=== PATIENT | female | born 1970 | race Caucasian/White ===

== ENCOUNTER 2017-04-29 11:30 | Emergency (ER) | payer OTHER, MEDICAID ==
[~2017-04-29] VITALS: Ht 152.4 cm; Wt 81.0 kg
[2017-04-29 11:38] VITALS: Ht 152.4 cm; Wt 81.0 kg
[2017-04-29] MEDS ORDERED: KETOROLAC 30 MG INJ IM STA (12:04)
[2017-04-29 12:26] LABS: ADD UMIC NO; UR ASCORBIC ACID NEGATIVE (NEGATIVE); UR BILIRUBIN (Dip) NEGATIVE (NEGATIVE); UR BLOOD (Dip) NEGATIVE (NEGATIVE); UR CLARITY CLEAR (CLEAR); UR COLOR STRAW (YELLOW); UR GLUCOSE (Dip) NEGATIVE (NEGATIVE); UR KETONES (Dip) NEGATIVE (NEGATIVE); UR LEUKOCYTE ESTERASE (Dip) NEGATIVE Leu/ul (NEGATIVE); UR NITRITE (Dip) NEGATIVE (NEGATIVE); UR SPECIFIC GRAVITY (Dip) 1.006 (1.003-1.030); UR TOTAL PROTEIN (Dip) NEGATIVE (NEGATIVE); UR UROBILINOGEN (Dip) NEGATIVE (NEGATIVE)
[2017-04-29] MEDS ORDERED: DIAZEPAM 5 MG TAB PO ONE (12:30)
--- NOTE | 2017-04-29 13:26 | RADRPT ---
PROCEDURE: XR left Hip. CLINICAL INDICATION: Left hip pain TECHNIQUE: AP and frog lateral views of the left hip were performed. COMPARISON: None. FINDINGS: There is no acute osseous or articular abnormality. No evidence for fracture. Bone mineral density is preserved. The left hip joint is maintained. 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 The soft tissues are intact without evidence of calcifications. IMPRESSION: 1. No acute osseous abnormality. 2. Preserved left hip joint space. RPTAT: AA .Jose Rosas MD, MD Date Time Electronically viewed and signed by .Jose Rosas MD, MD on 04/29/2017 13:26 .d/
--- NOTE | 2017-04-29 13:39 | RADRPT ---
PROCEDURE: XR L-Spine. CLINICAL INDICATION: Low back pain. TECHNIQUE: AP, lateral, and cone down views of the lumbar spine were obtained. COMPARISON: None FINDINGS: The lumbar lordosis is maintained. Mild disk height loss at L5-S1 is seen. The vertebral body height s are normal. No acute fracture or subluxation is seen. No paravertebral soft tissue abnormality i s seen. IMPRESSION: Mild discogenic disease at L5-S1. RPTAT: HPNM Physician Prashant Date Time Electronically viewed and signed by Physician Prashant on 04/29/2017 13:38 /
[2017-04-29] MEDS ORDERED: NAPR-688 PO (13:53)
[2017-04-29] MEDS ORDERED: CYCL-319 PO (13:53)
[2017-04-29 14:00] VITALS: BP 131/80; PULSE 73; RESP 18; TEMP 98.4
--- NOTE | 2017-04-29 15:24 | ERD ---
ER Documentation Chief Complaint Date/Time DATE: 04/29/17 TIME: 15:20 Chief Complaint left hip pain radiating to the back HPI This is a 46-year-old female presenting to the emergency department complaining of left lower back pain, left hip pain that radiates down her left leg for the past 3 days. Patient states the pain 7 out of 10. She states that she is able to ambulate but has difficulty with the pain. She tried ibuprofen yesterday without any relief. She denies any saddle anesthesia, bladder or bowel incontinence ROS All systems reviewed and are negative except as per history of present illness. Medications Home Meds Active Scripts Cyclobenzaprine Hcl* (Cyclobenzaprine Hcl*) 10 Mg Tablet, 10 MG PO TID, #15 TAB Prov:HOLLIE ZHU PA-C 04/29/17 Naproxen* (Naproxen*) 500 Mg Tablet, 500 MG PO BID Y for PAIN AND OR ELEVATED TEMP, #30 TAB Prov:HOLLIE ZHU PA-C 04/29/17 Allergies Allergies: Coded Allergies: No Known Allergy (Unverified , 05/15/13) PMhx/Soc History of Surgery: Yes (2 C-SECTIONS; UTERUS-FIBROIDS) Anesthesia Reaction: No Hx Neurological Disorder: No Hx Respiratory Disorders: No Hx Cardiac Disorders: No Hx Psychiatric Problems: No Hx Miscellaneous Medical Probl: Yes (BLEEDING; FIBROIDS) Hx Alcohol Use: No Hx Substance Use: No Hx Tobacco Use: No Physical Exam Vitals Vital Signs Date Time Temp Pulse Resp B/P Pulse Ox O2 Delivery O2 Flow Rate FiO2 04/29/17 14:00 98.4 73 18 131/80 99 Room Air 04/29/17 11:38 97.8 77 18 121/70 99 Physical Exam GENERAL: WD/WN, in no apparent distress, non-toxic appearing HENT: NC/AT EYES: Conjunctiva normal NECK: Supple PULM: Normal labored breathing CV: Good capillary refill GI: Non-distended, no guarding BACK: no deformities noted, normal spinal curvature, TTP on lumbar region, tender palpation of the lumbar spine, positive left straight leg raise EXT: No clubbing, cyanosis, or edema NEURO: Moves on all fours, sensation intact, normal gait SKIN: intact PSYCH: Normal mood Results 24 hrs Laboratory Tests Test 04/29/17 12:15 Urine Color STRAW Urine Clarity CLEAR Urine pH 7.0 Urine Specific [place] 1.006 Urine Ketones NEGATIVEmg/dL Urine Nitrite NEGATIVEmg/dL Urine Bilirubin NEGATIVEmg/dL Urine Urobilinogen NEGATIVEmg/dL Urine Leukocyte Esterase NEGATIVELeu/ul Urine Hemoglobin NEGATIVEmg/dL Urine Glucose NEGATIVEmg/dL Urine Total Protein NEGATIVEmg/dl Current Medications Medications (Trade) Dose Ordered Sig/Adelina Route PRN Reason Start Time Stop Time Status Last Admin Dose Admin Ketorolac Tromethamine (Toradol) 30 mg ONCE STAT IM 04/29/17 12:04 04/29/17 12:07 DC 04/29/17 12:18 Diazepam (Valium) 10 mg ONCE ONCE PO 04/29/17 12:30 04/29/17 12:31 DC 04/29/17 12:18 Procedures/MDM This is a 46-year-old female presenting to the emergency department complaining of lumbar back pain, left hip pain that radiates down her leg for the past 4 days which is likely due to sciatica and discogenic disease of the lumbar spine. There was no evidence of cauda equina syndrome. Lumbar x-ray was done and showed discogenic disease at the L5-S1 without any fracture. Left hip x- ray was unremarkable. In the ED patient was given naproxen and Valium. Patient is neurovascular intact to be discharged home to follow-up with her primary care physician for further evaluation management. Prescription for naproxen and Flexeril was provided. Discussed return the ER for any worsening symptoms. Patient understands and agrees to this plan Departure Diagnosis: Primary Impression: Sciatica Condition: Stable Patient Instructions: Understanding Sciatica, Back Pain W/ Sciatica Additional Instructions: FOLLOW UP WITH YOUR PRIMARY CARE PHYSICIAN TOMORROW.Return to this facility if you are not improving as expected. Return to this facility if you are not improving as expected. Take all medicines as directed. You have been given a medicine which may cause drowsiness.DO NOT DRIVE OR OPERATE DANGEROUS MACHINERY while taking this medicine! HOLLIE ZHU PA-C Apr 29, 2017 15:24
== END 2017-04-29 14:01 | disposition home or self-care (01) ==
LOC: FTE 11:30
DX: M54.42 Lumbago with sciatica, left side (principal)
CPT/HCPCS: 72100; 73510; 81003; 96372; J1885

== ENCOUNTER 2017-08-14 18:41 | Emergency (ER) | END 2017-08-14 23:16 | disposition left against medical advice (07) | DX: G45.9 Transient cerebral ischemic attack, unspecified (principal); R40.2252 Coma scale, best verbal response, oriented, at arrival to emergency department; R40.2142 Coma scale, eyes open, spontaneous, at arrival to emergency department; R40.2362 Coma scale, best motor response, obeys commands, at arrival to emergency department | CPT/HCPCS: 36415; 70450; 70496; 70498; 71010; 80048; 80307; 81003; 82962; 83036; 84484; 85025; 85610; 85730; 93005; 99285; J7040; Q9967 ==

== ENCOUNTER 2019-03-31 19:31 | Emergency (ER) | payer OTHER ==
[~2019-03-31] VITALS: Ht 152.4 cm; Wt 86.2 kg
[~2019-03-31 19:31] MED LIST: CYCL10TA7 PO; NAPR-688 PO
[2019-03-31 19:36] VITALS: Ht 152.4 cm; Wt 86.2 kg
[2019-03-31] MEDS ORDERED: ONDANSETRON 4 MG INJ IV STA (20:33)
[2019-03-31] MEDS ORDERED: FAMOTIDINE 20 MG INJ IV STA (20:33)
[2019-03-31] MEDS ORDERED: IBUP-1545 PO (21:47)
[2019-03-31 23:30] VITALS: BP 119/70; PULSE 74; RESP 15
--- NOTE | 2019-03-31 23:37 | ERD ---
ER Documentation Chief Complaint Chief Complaint palpitations, L facial numbness, tingling fingers just now HPI 48-year-old female presents to the ED complaining of acute onset of palpitations and tingling to her fingers with numbness to her face earlier but feels better now. Symptoms accompanied by nausea and had one episode of nonbloody, nonbilious emesis. No abdominal pain or back pain. Admits to being under increasing stress at work. Denies chest pain, palpitations or shortness of breath. No URI symptoms or cough. Denies visual changes, headache, or weakness. No fevers or chills. ROS All systems reviewed and are negative except as per history of present illness. Medications Home Meds Reported Medications Ibuprofen* (Ibuprofen*) 800 Mg Tab, 800 MG PO Q6H PRN for PAIN, TAB 03/31/19 Discontinued Scripts Cyclobenzaprine Hcl* (Cyclobenzaprine Hcl*) 10 Mg Tablet, 10 MG PO TID, #15 TAB Prov:HOLLIE ZHU PA-C 04/29/17 Naproxen* (Naproxen*) 500 Mg Tablet, 500 MG PO BID PRN for PAIN AND OR ELEVATED TEMP, #30 TAB Prov:HOLLIE ZHU PA-C 04/29/17 Allergies Allergies: Coded Allergies: No Known Allergy (Unverified , 03/31/19) PMhx/Soc History of Surgery: Yes (,Hysterectomy) Anesthesia Reaction: No Hx Neurological Disorder: No Hx Respiratory Disorders: No Hx Cardiac Disorders: Yes (HTN, HIGH CHOLESTEROL) Hx Psychiatric Problems: No Hx Miscellaneous Medical Probl: Yes (Uterine Fibroids) Hx Alcohol Use: No Hx Substance Use: No Hx Tobacco Use: No Smoking Status: Never smoker Physical Exam Vitals Vital Signs Date Temp Pulse Resp B/P (MAP) Pulse Ox O2 O2 Flow FiO2 Time Delivery Rate 03/31/19 82 15 123/75 97 Room Air 21:30 (91) 03/31/19 87 18 143/80 98 Room Air 19:42 (101) 03/31/19 98.7 109 20 178/85 96 19:36 (116) Physical Exam Const: No acute distress Head: Atraumatic Eyes: Normal Conjunctiva ENT: Normal External Ears, Nose and Mouth. Neck: Full range of motion. No meningismus. Resp: Clear to auscultation bilaterally Cardio: Regular rate and rhythm, no murmurs Abd: Soft, non tender, non distended. Normal bowel sounds Skin: No petechiae or rashes Back: No midline or flank tenderness Ext: No cyanosis, or edema Neur: Awake and alert Psych: Normal Mood and Affect Result Diagram: 03/31/19195503/31/191955 Results 24 hrs Laboratory Tests Test 03/31/19 19:56 White Blood Count 9.0 10^3/ul Red Blood Count 4.61 10^6/ul Hemoglobin 13.4 g/dl Hematocrit 40.3 % Mean Corpuscular Volume 87.4 fl Mean Corpuscular Hemoglobin 29.1 pg Mean Corpuscular Hemoglobin Concent 33.3 g/dl Red Cell Distribution Width 12.1 % Platelet Count 323 10^3/UL Mean Platelet Volume 10.6 fl Immature Granulocytes % 0.900 % Neutrophils % 63.6 % Lymphocytes % 27.3 % Monocytes % 6.2 % Eosinophils % 1.3 % Basophils % 0.7 % Nucleated Red Blood Cells % 0.0 /100WBC Immature Granulocytes # 0.080 10^3/ul Neutrophils # 5.7 10^3/ul Lymphocytes # 2.5 10^3/ul Monocytes # 0.6 10^3/ul Eosinophils # 0.1 10^3/ul Basophils # 0.1 10^3/ul Nucleated Red Blood Cells # 0.0 10^3/ul Sodium Level 146 mmol/L Potassium Level 3.5 mmol/L Chloride Level 108 mmol/L Carbon Dioxide Level 26 mmol/L Anion Gap 12 Blood Urea Nitrogen 14 mg/dl Creatinine 0.58 mg/dl Est Glomerular Filtrat Rate mL/min > 60 mL/min Glucose Level 124 mg/dl Calcium Level 9.3 mg/dl Total Bilirubin 0.6 mg/dl Direct Bilirubin 0.00 mg/dl Indirect Bilirubin 0.6 mg/dl Aspartate Amino Transf (AST/SGOT) 33 IU/L Alanine Aminotransferase (ALT/SGPT) 24 IU/L Alkaline Phosphatase 130 IU/L Troponin I < 0.012 ng/ml Total Protein 7.2 g/dl Albumin 4.2 g/dl Globulin 3.00 g/dl Albumin/Globulin Ratio 1.40 Lipase 84 U/L Current Medications Medications Dose Sig/Adelina Start Time Status Last (Trade) Ordered Route PRN Stop Time Admin Dose Reason Admin Ondansetron 4 mg ONCE STAT 03/31/19 DC 03/31/19 HCl (Zofran IV 20:33 20:40 Inj) 03/31/19 20:35 Famotidine 20 mg ONCE STAT 03/31/19 DC 03/31/19 (Pepcid Iv) IV 20:33 20:41 03/31/19 20:35 Procedures/MDM DOCUMENTS REVIEWED: ED nurse, prior records EKG: Time: 19:39. Sinus tachycardia. Normal NC and QRS. No acute ST segment elevation depression. Normal axis. No ectopy. My Interpretation IMAGING: Chest AP portable. Cardiac silhouette is normal. The costophrenic angles are clear. No effusions or infiltrates. No abnormalities of the bony thorax. My interpretation. ED COURSE: [] REEXAMINATION/REEVALUATION: Time: 23: 15. Feels better. Sinus rhythm without ectopy. Asymptomatic. MEDICAL DECISION MAKIN-year-old female presents to the ED complaining of acute onset of palpitations and tingling to her fingers with numbness to her face earlier but feels better now. Stable for discharge with precautionary instructions and outpatient follow-up as counseled. Counseled patient[ and family] regarding diagnostic workup, diagnosis and need for followup. Understands to return to ED if symptoms recur, worsen or any other concerns. Departure Diagnosis: Primary Impression: Palpitations Additional Impression: Anxiety Condition: Stable (Improved) MADI TOMLIN MD Mar 31, 2019 23:37
== END 2019-04-01 00:15 | disposition home or self-care (01) ==
LOC: E/R 19:31
DX: R00.2 Palpitations (principal); F41.9 Anxiety disorder, unspecified; I10 Essential (primary) hypertension; R11.0 Nausea
CPT/HCPCS: 36415; 71045; 80053; 83690; 84484; 85025; 93005; 96374; 96375; 99285; J2405